=== PATIENT | female | born 1960 ===

== ENCOUNTER → 2020-11-23 | Outpatient (CLI) | payer BC ==
--- NOTE | 2020-11-24 05:06 | MR ---
EXAMINATION TYPE: MR knee RT wo con DATE OF EXAM: 11/23/2020 COMPARISON: None HISTORY: Outer right knee pain. Multiplanar multiecho imaging of the right knee without contrast. There is knee joint effusion. The anterior and posterior cruciate ligaments are intact. The collatera l ligaments appear intact on the medial aspect. There is some lateral bulging of the lateral collater al ligament. No definite tear. There is large oblique tear through the anterior horn of the lateral meniscus. The medial meniscus sh ows fairly normal signal pattern. There is no evidence of a fracture. I see no bony destructive proce ss. IMPRESSION: Knee joint effusion. Small popliteal cyst measures 5 mm in thickness. Large tear of the anterior horn of the lateral meniscus. Mild degenerative thinning of the posterior horn of the lateral meniscus.
== END | disposition home or self-care (01) ==
LOC: RADMRIMAIN 19:51
PROVIDERS: ATTEND Orthopaedic Surgery
DX: S83.281A Other tear of lateral meniscus, current injury, right knee, initial encounter (principal); M25.461 Effusion, right knee; M71.21 Synovial cyst of popliteal space [Baker], right knee; X58.XXXA Exposure to other specified factors, initial encounter

== ENCOUNTER 2021-05-11 21:17 | Emergency (ER) | payer BC, OTHER ==
[2021-05-11 22:04] VITALS: TEMP 98.9
[2021-05-11 22:54] VITALS: BP 129/86; PULSE 89; RESP 16
[2021-05-11] MEDS ORDERED: ONDANSETRON ODT 4 MG TAB PO STA (22:59)
--- NOTE | 2021-05-11 23:14 | ED ---
Headache HPI - General Chief Complaint: Headache Stated Complaint: [facility] - Head Injury Time Seen by Provider: 05/11/21 22:47 Mode of arrival: ambulatory Limitations: no limitations - History of Present Illness Initial Comments: Patient is a 61-year-old female who presents to the emergency department with a chief complaint of headache. Patient was at work on Saturday when some bins fell on top of her head. Patient did not fall. Patient did not lose consciousness and is not on blood thinners. Patient reports she initially had a cut on her head which has since healed. Patient reports a headache that has progressively gotten worse since the incident. She states that the headache is severe causing nausea. The headache is located behind her eyes and in the back of the head. Pain is refractory to Tylenol. Patient attempted to get an outpatient CT and MRI but has had issues. She went to the urgent care today who sent her here. Patient has no other concerns at this time including fever, chills, visual symptoms, neck pain, dizziness, chest pain, shortness of breath, abdominal pain. - Related Data Allergies Allergy/AdvReac Type Severity Reaction Status Date / Time clarithromycin [From Biaxin] Allergy Nausea & Verified 05/11/21 22:04 Vomiting Review of Systems ROS Statement: Those systems with pertinent positive or pertinent negative responses have been documented in the HPI. ROS Other: All systems not noted in ROS Statement are negative. Past Medical History Past Medical History: No Reported History History of Any Multi-Drug Resistant Organisms: None Reported Past Surgical History: Tubal Ligation Additional Past Surgical History / Comment(s): vein surgery, esophagas stretching Past Psychological History: No Psychological Hx Reported Smoking Status: Never smoker Past Alcohol Use History: None Reported Past Drug Use History: None Reported General Exam Limitations: no limitations General appearance: alert, in no apparent distress Head exam: Present: atraumatic, normocephalic, normal inspection, other Eye exam: Present: normal appearance, PERRL, EOMI. Absent: scleral icterus, conjunctival injection, periorbital swelling Neck exam: Present: normal inspection, full ROM. Absent: tenderness Respiratory exam: Present: normal lung sounds bilaterally. Absent: respiratory distress, wheezes, rales, rhonchi, stridor Cardiovascular Exam: Present: regular rate, normal rhythm, normal heart sounds. Absent: systolic murmur, diastolic murmur, rubs, gallop, clicks GI/Abdominal exam: Present: soft, normal bowel sounds. Absent: distended, tenderness, guarding, rebound, rigid Neurological exam: Present: alert, oriented X3, CN II-XII intact Psychiatric exam: Present: normal affect, normal mood Skin exam: Present: warm, dry, intact, normal color. Absent: rash Course Vital Signs 05/11/21 05/11/21 21:59 22:53 Temperature 98.9 F Pulse Rate 79 89 Respiratory 20 16 Rate Blood Pressure 135/84 129/86 O2 Sat by Pulse 98 97 Oximetry Medical Decision Making - Medical Decision Making This is a 61 year-old female who presents with progressively worsening headache after bins fell on her head at work this past Saturday. Thorough history and examination were performed. CT of the brain and C-spine without contrast was obtained which reveals no mass effect, midline shift, or sign of intracranial hemorrhage with the lower cervical spine showing spondylitic changes. Zofran was given for nausea. Toradol was ordered after CT results were obtained. Patient declined Toradol medication as she reports she is already taking Tylenol. Patient declines other medication at this time. Incidental CT findings were discussed. Patient will be discharged with instruction to follow up with primary care provider. She is instructed to take Tylenol or Motrin for pain. Return parameters discussed. She verbalizes understanding and is agreeable to plan. Dr. Uriostegui is my attending. Disposition Clinical Impression: Headache Disposition: HOME SELF-CARE Condition: Good Instructions (If sedation given, give patient instructions): Acute Headache (ED) Additional Instructions: Please follow-up with primary care provider at earliest available appointment. You may take Tylenol or Motrin as needed for pain. Return to the emergency department if you experience new, concerning, or worsening symptoms. Is patient prescribed a controlled substance at d/c from ED?: No Referrals: Flo Dahl MD [Primary Care Provider] - 1-2 days Time of Disposition: 23:52
--- NOTE | 2021-05-11 23:27 | CT ---
EXAMINATION TYPE: CT brain leesa freed con DATE OF EXAM: 05/11/2021 COMPARISON: None HISTORY: severe headache/ head injury. no prior on PACS CT DLP: 1225.7 mGycm Automated exposure control for dose reduction was used. Ventricles have normal size. There is no mass effect or midline shift. There is no sign of intracrani al hemorrhage. The calvarium is intact. Skull base is intact. There is normal aeration of the mastoid sinuses. There is 2 cm mucous retention cyst in the left maxillary sinus. The cervical vertebra show mild straightening. There is some degenerative disc space narrowing and sp ur formation at C5-6 and C6-7. The posterior elements are intact. No compression fracture. IMPRESSION: Spondylotic changes in the lower cervical spine at C5-6 and C6-7. No fracture. Negative CT scan of the brain.
[2021-05-11] MEDS ORDERED: KETOROLAC 15 MG/ML 1 ML VIAL IM STA (23:30)
[2021-05-11] MEDS ORDERED: diphenhydrAMINE 50 MG CAP PO STA (23:32)
== END 2021-05-12 00:01 | disposition home or self-care (01) ==
LOC: EC 21:17
DX: R51.9 Headache, unspecified (principal); Z88.1 Allergy status to other antibiotic agents; W20.8XXA Other cause of strike by thrown, projected or falling object, initial encounter; Y92.89 Other specified places as the place of occurrence of the external cause
CPT/HCPCS: 70450; 72125; 99284

== ENCOUNTER 2021-05-12 15:09 | Emergency (ER) | payer BC, OTHER ==
[2021-05-12 15:15] VITALS: BP 144/86; PULSE 79; RESP 18; TEMP 98.2
--- NOTE | 2021-05-12 15:54 | ED ---
Head Injury HPI - General Chief complaint: Head Injury Stated complaint: Fall-head injury Time Seen by Provider: 05/12/21 15:36 Source: patient Mode of arrival: ambulatory Limitations: no limitations - History of Present Illness Initial comments: Jenna is a pleasant 61yo F who returns to the ER today at the instruction of the occupational health clinic. Last week the patient was at work when she dropped a plastic been onto her head. She had a headache for about 2 days and then thought she was feeling better but over the past 3 days has been feeling worse. She can the hospital last night and had a head CT and cervical spine CT which revealed some arthritic changes in the cervical spine but no acute findings in the brain. She had outpatient follow-up at the occupational health clinic today which recommended she remain off work for post concussive syndrome, follow with neurology outpatient but they also advised her to return to the ER for further evaluation. Patient's main complaint is persistent headaches, fatigue. She does report feeling better when she rests. She has only been taking Tylenol for the past week. She was advised by occupational health today she can also take Motrin and that she needs to stay hydrated and rest. Patient has no vision changes, no vomiting. Injury was one week ago. - Related Data Allergies/Adverse reactions: Allergies Allergy/AdvReac Type Severity Reaction Status Date / Time clarithromycin [From Biaxin] Allergy Nausea & Verified 05/11/21 22:04 Vomiting Review of Systems ROS Statement: Those systems with pertinent positive or pertinent negative responses have been documented in the HPI. ROS Other: All systems not noted in ROS Statement are negative. Past Medical History Past Medical History: No Reported History History of Any Multi-Drug Resistant Organisms: None Reported Past Surgical History: Tubal Ligation Additional Past Surgical History / Comment(s): vein surgery, esophagas stretching Past Psychological History: No Psychological Hx Reported Smoking Status: Never smoker Past Alcohol Use History: None Reported Past Drug Use History: None Reported General Exam - General Exam Comments Initial Comments: Physical Exam GENERAL: Patient is well-developed and well-nourished. Patient is nontoxic and well-hydrated and is in no distress. HENT: Normocephalic, Atraumatic. EYES: PERRL, EOMI PULMONARY: Unlabored respirations. CARDIOVASCULAR: RRR Warm and well perfused extremities ABDOMEN: Non-distended SKIN: No rashes or bruising : Deferred NEUROLOGIC: Alert and oriented Normal speech Normal gait MUSCULOSKELETAL: Moving all extremities with no apparent injury PSYCHIATRIC: No SI/HI Limitations: no limitations Course Vital Signs 05/12/21 15:12 Temperature 98.2 F Pulse Rate 79 Respiratory 18 Rate Blood Pressure 144/86 O2 Sat by Pulse 98 Oximetry Medical Decision Making - Medical Decision Making The patient was seen and evaluated, previous studies as well as note from occupational health were reviewed. At this time I feel the patient is suffering from postconcussive syndrome. She's had persistent headaches which are worse with activity. The importance of brain rest was discussed. Patient will be referred to outpatient neurology. Patient was provided with a work note to remain off work to allow for brain rest by her occupational health specialist. I did discuss with patient's daughter they're concerned about need for MRI, patient and stated this was discussed at the occupational health and they are awaiting approval from [employer]. I did offer to start an IV, hydrate the patient and treat her or headache however she states she would rather go home and get some rest as they've her awake all night here in the ER and spent the entire morning at the occupational health clinic. Disposition Clinical Impression: Closed head injury, Concussion Disposition: HOME SELF-CARE Condition: Stable Instructions (If sedation given, give patient instructions): Post Concussion Syndrome (ED) Is patient prescribed a controlled substance at d/c from ED?: No Referrals: Flo Dahl MD [Primary Care Provider] - 1-2 days William Villar MD [Medical Doctor] - 1-2 days Martín Yoder MD [STAFF PHYSICIAN] - 1-2 days
== END 2021-05-12 16:31 | disposition home or self-care (01) ==
LOC: EC 15:09
DX: S06.0X0A Concussion without loss of consciousness, initial encounter (principal); Z88.1 Allergy status to other antibiotic agents; W20.8XXA Other cause of strike by thrown, projected or falling object, initial encounter; Y99.0 Civilian activity done for income or pay
CPT/HCPCS: 99283

== ENCOUNTER → 2021-05-29 | Outpatient (CLI) | payer OTHER ==
--- NOTE | 2021-05-30 00:03 | MR ---
EXAMINATION TYPE: MR brain wo con DATE OF EXAM: 05/29/2021 COMPARISON: None HISTORY: Dizziness, head pain and pressure due to getting object dropped on head at work 05-05-21 Multiplanar multiecho imaging of the brain without contrast. Ventricles have normal size. There is no mass effect or midline shift. There is no sign of intracrani al hemorrhage. Sella turcica is normal. Corpus callosum is intact. Brainstem is intact. Diffusion images show no evidence of an acute infarct. On the T2 and FLAIR images there are scattered small foci of increased signal at the roland-white matte r junction of both cerebral hemispheres. These are more noticeable in the frontal lobes. Total number is approximately 15. These measure mostly less than 3 mm. IMPRESSION: Scattered peripheral white matter small high signal foci likely related to microvascular ischemia. No evidence of cortical infarct. No evidence of acute traumatic injury.
== END | disposition home or self-care (01) ==
LOC: RADMRIMAIN 21:15
PROVIDERS: ATTEND Emergency Medicine
DX: S00.83XD Contusion of other part of head, subsequent encounter (principal); G44.321 Chronic post-traumatic headache, intractable; S13.4XXD Sprain of ligaments of cervical spine, subsequent encounter; S40.011D Contusion of right shoulder, subsequent encounter; S50.01XD Contusion of right elbow, subsequent encounter; X58.XXXD Exposure to other specified factors, subsequent encounter
CPT/HCPCS: 70551

== ENCOUNTER → 2021-06-07 | Outpatient (CLI) | payer OTHER ==
--- NOTE | 2021-06-07 13:50 | MR ---
EXAMINATION TYPE: MR cervical spine wo con DATE OF EXAM: 06/07/2021 COMPARISON: CT scan 05/11/2021 HISTORY: Sprain ligaments cervical spine TECHNIQUE: Multiplanar, multisequence images of the cervical spine were acquired without contrast. C2-C3: Disc desiccation noted at all levels. C3-C4: No evidence for degenerative disc disease. No disc bulge/herniation or protrusion. No Canal stenosis. Foramina are patent bilaterally. C4-C5: No evidence for degenerative disc disease. No disc bulge/herniation or protrusion. No Canal stenosis. Foramina are patent bilaterally. C5-C6: Loss of disc signal space and there is a broad-based left paracentral and central disc herniat ion resulting in anterior contact of the spinal cord. Mild uncovertebral joint hypertrophy greater on the left results in mild left foraminal encroachment. C6-C7: Degenerative disc disease with uncovertebral joint hypertrophy bilaterally. Mild broad-based c entral disc protrusion but no canal stenosis or spinal cord contact. Mild bilateral foraminal encroac hment. C7-T1: Degenerative disc disease but no evidence of disc herniation, canal stenosis, or foraminal enc roachment. There is loss of the normal cervical lordosis. There is discogenic marrow changes and degenerative di sc disease particularly noted at C5-6 and C6-C7 with anterior hypertrophic spurring. Could not exclud e a tiny area of abnormal signal within the anterior margin of the spinal cord at the level C5-C6. Ce rebellar tonsils low-lying in position at the level of foramen magnum. Report called to referring marysol bull 1:42 PM on 06/07/2021. IMPRESSION: 1. Severe degenerative disc disease with broad-based central and left paracentral disc herniation C5- C6 with mild anterior compression upon the spinal cord. Cannot exclude a tiny area of abnormal signal within the anterior margin of the spinal cord, which could represent an area of compressive myelitis or myelopathy. 2. Broad-based disc bulging or protrusion C6-C7 with no canal stenosis or spinal cord contact. 3. Low-lying cerebellar tonsils correlate clinically.
== END | disposition home or self-care (01) ==
LOC: RADMRIMAIN 08:25
PROVIDERS: ATTEND Emergency Medicine
DX: S13.4XXD Sprain of ligaments of cervical spine, subsequent encounter (principal); S00.83XD Contusion of other part of head, subsequent encounter; S40.011D Contusion of right shoulder, subsequent encounter; S50.01XD Contusion of right elbow, subsequent encounter; G44.321 Chronic post-traumatic headache, intractable; X58.XXXD Exposure to other specified factors, subsequent encounter
CPT/HCPCS: 72141

== ENCOUNTER → 2022-01-22 | Outpatient (CLI) | payer OTHER ==
[2022-01-22 14:19] VITALS: BP 119/82; PULSE 84; RESP 18; TEMP 98
--- NOTE | 2022-01-22 15:39 | P.PAINPG ---
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 Pt states pain level is at 7/10 in intensity, constant, localized in the R cervical spine, achy in character w shooting pain towards the RUE. Pain is provoked by flexion, hyperextension and rotation. Pain is alleviated by PT which she is currently in, heat, meds (Tyl, Ibu, Neurontin), laying supine, repositioning and rest. PMH: No Reported History PSH: Tubal Ligation, Vein Surgery, Esophageal Dilation SH: Negative x3 FH: Non contributory All: See list Meds: See list REVIEW OF ORGAN SYSTEMS: CONSTITUTIONAL: No fevers or chills. No recent weight loss. NEUROLOGICAL: + numbness and tingling along the distal extremities. No seizure disorders or headaches. MUSCULOSKELETAL: + pain PSYCHIATRIC: Denies current depression or suicidal thoughts. Physical Examinations : Constitutional : Cooperative , not in acute distress . Neurologic : Cranial nerve II to XII intact. No focal neurological deficits. Psychiatric : alert & oriented x 3. Matching mood & appropriate affect. Judgment & insight intact. Musculoskeletal : Cervical Spine Motor strength in the deltoid and biceps: Normal right side. Normal Left side Motor strength biceps and the wrist extensors: Normal right side . Normal left side Motor strength in the triceps muscle: Normal right side. Normal left side Deep tendon reflexes: Normal at the biceps. Normal at Brachioradialis. Normal at triceps Vertebral body tenderness to deep palpation over C6 Cervical facet loading test: positive bilaterally Spurling test: positive bilaterally Neck distraction test: positive bilaterally Blanca sign: positive bilaterally Lumbar spine Motor strength lower extremities ,thigh and legs 5/5 Right side , 5/5 Left side Deep tendon reflexes : Normal Knee Jerk. Normal Ankle Jerk Vertebral body tenderness over Lumbar facet Loading Test: positive Right / positive Left Range of motion of the lumbar spine Flexion 30 degrees, extension 10 degrees Straight Leg Raise test: Left/ Right positive at degree Dari test: positive right / positive left. Severe tenderness over the Sacroiliac joint on the Right / Left sides Gaenslen test: positive bilaterally Seated flexion test: positive bilaterally. Sacral spine : Severe tenderness over the Sacroiliac joint: right side / left side Range of motion: Flexion of the lumbar spine <60 degrees Range of motion: Extension of the lumbar spine <20 degrees Gaenslen's Test positive Damian's Test positive Dari test: positive right side / left side Thigh Thrust Test Sacral Thrust Test Imaging: MRI without contrast of the cervical spine from 06/07/21 reviewed Assessment/ Plan : Cervical disc bulges, Cervical DDD Recommendation of TOOTIE C6-C7. May need a series of injections, up to 3 within a 6 mo period, for optimal apin relief. Risks, benefits of procedure discussed and patient verbalized understanding. Denies aspirin or anti- coagulant use or medical history of diabetes. Protocol for discontinuation/ continuation of medications sandy procedure discussed. All questions answered. I have spent greater than 30 minutes on patient care today. Dr Sanchez was available by phone for the evaluation of this patient. The time was used to review the medical records including relevant urine studies and Prescription history (MAPs), review of the available imaging, evaluation and examination of the patient, coordination of care with the medical staff and if applicable referring physicians, as well as creation of the medical record Controlled Substance Measures - Controlled Substance Measures Is patient prescribed a controlled substance at discharge?: No
== END ==
LOC: PNWHC3 13:36
PROVIDERS: ATTEND Specialist
DX: M50.30 Other cervical disc degeneration, unspecified cervical region (principal); Z88.1 Allergy status to other antibiotic agents
CPT/HCPCS: 99211

== ENCOUNTER → 2023-04-05 | Outpatient (CLI) | payer OTHER ==
--- NOTE | 2023-04-05 18:37 | MR ---
MRI CERVICAL SPINE: CLINICAL HISTORY: Headaches with Neck, Shoulder, Head and Arm Pain Since May 05, 2021 due to a work accident other cervical disc displacement TECHNIQUE: Multiplanar, multisequence imaging of the cervical spine is performed without IV contrast. COMPARISON: Prior MRI cervical spine June 07, 2021. FINDINGS: Sagittal images of the cervical spine show the craniocervical junction to remain within nor mal limits. The cervical and upper thoracic spinal cord is normal in caliber and signal. Straightene d alignment is redemonstrated with slight grade 1 anterolisthesis C4 on C5 and slight grade 1 retroli sthesis C5 on C6 and C6 on C7. The vertebral body heights are normal. Moderate disc space narrowing with heterogeneous Modic type II endplate changes at C5-C6 and C6/C7 level is redemonstrated. Axial images show C2-C3 through C4-C5 level to remain within normal limits. Axial images at C5-C6 level redemonstrated broad-based posterior disc protrusion effacing the anterio r thecal sac and causing asymmetric mild to moderate left-sided neural foraminal narrowing.. Findings slightly more prominent from prior. Axial images at C6-C7 level demonstrates spondylolisthesis with broad-based posterior disc protrusion effacing the anterior thecal sac and causing mild to moderate bilateral neural foraminal narrowing. No significant change from prior. Axial images at C7-T1 level remain within normal limits. IMPRESSION: Straightening of cervical spine redemonstrated. Multilevel spondylolisthesis and degenera tive changes again seen. Interval degenerative progression at C5-C6 level noted from prior MRI.
== END | disposition home or self-care (01) ==
LOC: RADMRIMAIN 16:42
PROVIDERS: ATTEND Orthopaedic Surgery
DX: M47.22 Other spondylosis with radiculopathy, cervical region (principal); M43.12 Spondylolisthesis, cervical region
CPT/HCPCS: 72141

== ENCOUNTER → 2023-07-08 | Outpatient (CLI) | payer OTHER ==
--- NOTE | 2023-07-09 13:07 | MR ---
EXAMINATION TYPE: MR brain wo/w con DATE OF EXAM: 07/08/2023 10:33 PM CLINICAL INDICATION:Female, 63 years old with history of M47.812; PHH, Headaches, Post- concussion sy ndrome, Dizziness, Memory loss, Overall Weakness/Numbness COMPARISON: 05/29/2021 TECHNIQUE: Multi planar, multi sequence imaging was performed through the brain including: T1, T2, In version recovery, susceptibility weighted imaging and gradient echo imaging and Diffusion weighted im aging. The patient was then given intravenous contrast and multi planar, T1 fat-saturation images wer e obtained. IV Contrast: 7.5 cc Gadavist FINDINGS: The roland-white junctions, ventricular system, basal cisterns appear unremarkable. Diffusion-weighted imaging shows no evidence of restricted diffusion to suggest acute/subacute infarct. Intracranial ar terial flow voids are maintained. Midline structures show no abnormality. Scattered foci of high T2 s ignal intensity are seen within the periventricular white matter. The susceptibility weighted images do not reveal any evidence for micro-hemorrhage. After administration of gadolinium, no abnormal enha ncement is seen. The bone marrow signal is within normal limits. Paranasal sinuses and mastoid air cells: Mucous retention cyst in the left maxillary sinus Visualized orbits: Orbital contents are intact. IMPRESSION: 1. No evidence of intracranial mass, acute/subacute infarct, or abnormal enhancement. 2. Nonspecific white matter changes, likely related to small vessel ischemic disease.
== END | disposition home or self-care (01) ==
LOC: RADMRIMAIN 21:45
PROVIDERS: ATTEND Psychiatry & Neurology Neurology
DX: G93.89 Other specified disorders of brain (principal); M47.812 Spondylosis without myelopathy or radiculopathy, cervical region; F07.81 Postconcussional syndrome; R53.1 Weakness
CPT/HCPCS: 70553; A9585

== ENCOUNTER → 2023-07-15 | Outpatient (CLI) | payer BC ==
--- NOTE | 2023-07-15 19:33 | MM ---
Reason for Exam: Screening (asymptomatic). Last mammogram was performed 17 year(s) and 6 month(s) ago. Patient History: Menarche at age 13. First Full-Term at age 22. Postmenopausal. Patient has history of breast feeding. Paternal cousin had ovarian cancer. Risk Values: Nila 5 year model risk: 1.4%. NCI Lifetime model risk: 6.2%. Prior Study Comparison: 04/01/2002 Screening Mammogram, [facility]. 01/23/2006 Bilateral Screening Mammogram, [facility]. Tissue Density: The breasts are heterogeneously dense, which may obscure small masses. Findings: Analyzed By CAD. The pattern is symmetrical. No suspicious groups of microcalcifications, spiculated or lobular masses, architectural distortion or other secondary signs of malignancy are mammographically apparent. Overall Assessment: Benign, BI-RAD 2 Management: Screening Mammogram of both breasts in 1 year. A negative mammogram report should not preclude additional follow up of suspicious palpable abnormalities. Patient should continue monthly self breast exam. A clinical breast exam by your physician is recommended on an annual basis and results should be correlated with mammographic findings. Note on Nila scores and lifetime risk: 1. A Nila score greater than 3% is considered moderate risk. If this is the case, consider specialist referral to assess eligibility for a risk reducing agent. 2. If overall lifetime risk for the development of breast cancer is 20% or higher, the patient may qualify for future screening with alternating mammogram and breast MRI. Electronically signed and approved by: Mark Moss D.O. Radiologis
== END | disposition home or self-care (01) ==
LOC: RADMAMWWP 08:32
PROVIDERS: ATTEND Family Medicine
DX: Z12.31 Encounter for screening mammogram for malignant neoplasm of breast (principal); Z78.0 Asymptomatic menopausal state
CPT/HCPCS: 77067